=== PATIENT | male | born 1955 | race Caucasian/White ===

== ENCOUNTER 2017-09-10 11:21 | Inpatient (IN) | payer BC ==
[2017-09-10] VITALS (15 sets, daily range): BP systolic 80–127; BP diastolic 55–89
[~2017-09-10] VITALS: Ht 170.2 cm; Wt 114.3 kg
--- NOTE | ~2017-09-10 | H ---
[address] [address] HISTORY AND PHYSICAL Name: JOSH DALY Room: [address] IN ..#: [id number] Admission: 09/10/17 Attend Phys: Flaco Arora MD Discharge: 09/12/17 Date of : 55 Report #: [id number] THIS REPORT FOR: //name// Please refer to the History and Physical performed in the physician's office. By: 1439Medical Records Staff EVIE /DIANA
[2017-09-10 12:14] LABS: HEMATOCRIT 49.9 % (42.0-52.0); HEMOGLOBIN 16.7 gm/dL (14.0-18.0); MCH 31.3 pg (26.0-34.0); MCHC 33.4 g/dL (28.0-37.0); MCV 93.8 fL (80.0-100.0); MPV 7.7 fl. (7.2-11.1); RBC 5.31 mil/uL (4.50-6.00); RDW-CV 15.4 % (10.5-14.5)
[2017-09-10 12:24] LABS: ANION GAP 12 mmol/L (7-16); BUN 10 mg/dL (7-18); CALCIUM 9.1 mg/dL (8.5-10.1); CHLORIDE 102 mmol/L (98-107); CO2 26 mmol/L (21-32); GLUCOSE 80 mg/dL (70-99); POTASSIUM 3.9 mmol/L (3.5-5.1); SODIUM 140 mmol/L (136-145)
[2017-09-10 12:25] LABS: APTT 29.1 Seconds (25.0-31.3); PROTIME 9.9 Seconds (9.20-11.50)
[2017-09-10 12:29] LABS: ALBUMIN 3.7 g/dL (3.4-5.0); ALKALINE PHOSPHATASE 87 U/L (46-116); CHOLESTEROL 224 mg/dL (<200); HDL CHOLESTEROL 52 mg/dL (>40); LDL CHOLESTEROL 134 mg/dL (<100); SERUM ASSESSMENT Clear; SGOT 20 U/L (15-37); SGPT 35 U/L (30-65); TC:HDL 4.3 Ratio (Not establshd); TOTAL BILIRUBIN 0.3 mg/dL (<0.1-1.0); TOTAL PROTEIN 7.7 g/dL (6.4-8.2); TRIGLYCERIDE 193 mg/dL (<150); VLDL 39 mg/dL (<40)
[2017-09-10] MEDS ORDERED: DEXILANT60 MG PO (12:31)
[2017-09-10] MEDS ORDERED: LOPRESSOR50 PO (12:32)
[2017-09-10] MEDS ORDERED: LISINOPRIL5 MG PO (12:32)
[2017-09-10] MEDS ORDERED: ZETIA10 MG PO (12:32)
[2017-09-10] MEDS ORDERED: LEXAPRO20 MG (12:35)
[2017-09-10] MEDS ORDERED: CRESTOR40 MG PO (12:35)
[2017-09-10] MEDS ORDERED: ASPIR 8181 MG PO (12:36)
[2017-09-10] MEDS ORDERED: FISH OIL 1,001000 M2 (12:36)
[2017-09-10] MEDS ORDERED: ABILIFY 5 MG TAB5 MG PO (12:36)
--- NOTE | 2017-09-10 14:05 | EKG ---
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
--- NOTE | 2017-09-10 19:53 | NUR ---
RECIEVED REPORT AND ASSUMED CARE OF PT AT 1900. PT POST CARDIAC CATHETERIZATION WITH STENT PLACEMENT AND TREATMENT OF DISSECTED RIGHT CORONARY ARTERY. PT HAS RIGHT RADIAL RAD STAT IN PLACE AND RIGHT FEMORAL SHEATH WITH ARTERIAL LINE PRESENT. PT IN SUPINE POSITION WITH RIGHT LEG STRAIGHT. SEATH IS TO REMAIN FOR ENTIRE SHIFT UNTIL EVALUATED BY PIN GAME MACHINE INSPECTOR IN AM. PT USING CALL LIGHT APPROPRIATELY, VITAL SIGNS WITHIN NORMAL LIMITS.
[2017-09-10 20:16] LABS: CALCIUM 8.3 mg/dL (8.5-10.1); POTASSIUM 4.4 mmol/L (3.5-5.1); TOTAL BILIRUBIN 0.4 mg/dL (<0.1-1.0); TOTAL PROTEIN 6.5 g/dL (6.4-8.2)
[2017-09-11] VITALS (22 sets, daily range): BP systolic 96–146; BP diastolic 50–87
[2017-09-11 04:15] LABS: HEMATOCRIT 42.7 % (42.0-52.0); MCH 31.1 pg (26.0-34.0); MCHC 33.1 g/dL (28.0-37.0); MPV 7.6 fl. (7.2-11.1); RBC 4.54 mil/uL (4.50-6.00); WBC 8.3 thou/uL (4.0-11.0)
[2017-09-11 04:18] LABS: HEMOGLOBIN 14.1 gm/dL (14.0-18.0)
[2017-09-11 04:35] LABS: ALBUMIN 2.9 g/dL (3.4-5.0); CALCIUM 8.2 mg/dL (8.5-10.1); CREATININE 0.9 mg/dL (0.6-1.3); POTASSIUM 4.1 mmol/L (3.5-5.1); TOTAL BILIRUBIN 0.6 mg/dL (<0.1-1.0); TOTAL PROTEIN 6.2 g/dL (6.4-8.2)
[2017-09-11 04:37] LABS: TROPONIN-I LEVEL 11.52 ng/mL (<0.06)
--- NOTE | 2017-09-11 05:18 | NUR ---
PT PROGRESSSING TOWARD GOALS. PT IN SINUS RHYTHM THROUGHOUT SHIFT. OCCASIONAL PVC'S AND PAC'S NOTED. BLOOD PRESSURE WITHIN NORMAL LIMITS. RAD STAT TO RIGHT WRIST REMOVED PER PROTOCOL. RIGHT GROIN SHEATH TO ARTERIAL LINE INTACT. GROIN SITE SOFT, NO BLEEDING OR HEMATOMA NOTED. UPPER EXTREMITY PULSES 2+, LOWER EXTREMITIES PALPABLE AT 1+. PT DENIES CHEST PAIN, PRESSURE OR SHORTNESS OF AIR DURING SHIFT. PT TOLERATING CLEAR LIQUIDS WITHOUT DIFFICULTY, NO NAUSEA OR VOMITING. PT MAINTAINED SUPINE POSITION DURING NIGHT, PRN NORCO GIVEN ONCE FOR ACHING BACK. NO ACUTE CHANGES DURING SHIFT, WILL CONTINUE TO MONITOR CLOSELY.
--- NOTE | 2017-09-11 06:42 | NUR ---
PAGED DR ENNIS REGARDING AGGRASTAT. REPORTED BAG COMPLETELY INFUSED. RECIEVED ORDER TO CONTINUE INFUSION. MED OBTAINED VIA NURSING TOWING PILOT. DRIP CONTINUED ORDERED.
--- NOTE | 2017-09-11 10:55 | NUR ---
SPOKE WITH PT. PT HAD CARDIAC CATH WITH STENTS PLACED YESTERDAY. PT SAID HE LIVES WITH HIS AND HAS BEEN FAIRLY INDEP AT HOME. HE SAID HE NEEDS TO HAVE A PARTIAL KNEE REPLACEMENT DONE SO HE HAS BEEN SOMEWHAT LIMITED IN HOW ACTIVE HE CAN BE DUE TO THE KNEE PAIN. HE HAS BEEN USING A CANE DUE TO THE KNEE PAIN. 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 PT DENIES ANY DISCHARGE NNEDS.
--- NOTE | 2017-09-11 11:27 | NUR ---
ASSUMED PT CARE 0730. RIGHT GROIN SHEETH REMOVED BY CARDIOLOGY. RIGHT GROIN NO HEMATOMA. NO BLEEDING. TEGADERM AND 4X4 GUA[address] PL[address]. NO PAIN. PT REPORTS TENDERNESS AT SITE. RIGHT RADIAL SITE CLEAN, DRY, INTACT. PALBABLE RADIAL PULSE. PT DENIES CHEST PAIN/PRESSURE. NO NAUSEA. PEDAL PULSES PALBABLE. VSS. AFEBRILE. PT TOLERATING REGULAR DIET. PO [place]INTA GIVEN. AGRASTAT TO RUN FOR 4 HOURS POST ADMININSTRATION GO PO BRI[place]TA. AMIODARONE DC'D PER CARDIOLOGY. PT REMAINS ON BED REST. EDUCATION GIVEN ON NEW MEDICATION. TRACING SR. WILL CONTINUE PLAN OF CARE.
--- NOTE | 2017-09-11 14:21 | NUR ---
AT 1345 PT REPORTED FEELING SHORT OF BREATH AND FEELING "FLUSHED". BP 120'S/70'S HR IN 90'S, RESPIRATIONS 19, O2 96% ON ROOM AIR. EPISODE LASTED ABOUT 2 MINUTES. PT REPORTS THESE WERE SAME SYMPTOMS HE EXPERIENCED PRIOR TO ADMISSION. PT REPORTS FEELING LIKE HE JUST NEEDED TO SIT UP. EKG OBTAINED AND FAXED TO CARDIOLOGY. NOTHING ACUTE NOTED ON EKG PER CARDIOLOGY. PT WAS GOING TO BE TELEMETRY STATUS WHEN AGROSTAT STOPPED. ASKED IF PT STILL OKAY TO BE TELEMETRY STATUS, CARDIOLOGY REPORTS YES.
--- NOTE | 2017-09-11 16:06 | EKG ---
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 : 1955 Requested By: Flaco Arora Order Number: [id number] Sarah MD: Michael Villa Measurements Intervals [place] Rate: 82 P: 49 DC: 168 QRS: 39 QRSD: 90 T: -15 QT: 377 QTc: 441 Interpretive Statements Sinus rhythm Borderline low voltage, extremity leads Abnormal R-wave progression, early transition Compared to ECG 09/10/2017 11:56:19 No significant changes Electronically Signed On 09-11-2017 16:06:13 CDT by Michael Villa [email or web address] <ELECTRONICALLY SIGNED> By: Michael Villa MD, FAC 09/11/17 1606 1819 1819 Michael Villa MD, [facility] /EPI
--- NOTE | 2017-09-11 16:14 | EKG ---
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: : 1955 Requested By: Michael Villa Order Number: [id number] Sarah MD: Michael Villa Measurements Intervals [place] Rate: 100 P: 45 [place]: 162 QRS: 8 QRSD: 92 T: -48 QT: 376 QTc: 485 Interpretive Statements Sinus tachycardia Inferior infarct, age indeterminate Posterior infarct, old Compared to ECG 09/10/2017 11:56:19 Myocardial infarct finding now present Electronically Signed On 09-11-2017 16:14:20 CDT by Michael Villa [email or web address] <ELECTRONICALLY SIGNED> By: Michael Villa MD, [facility] 09/11/17 1614 1118 1118 Michael Villa MD, [facility] /EPI
--- NOTE | 2017-09-11 22:30 | NUR ---
INITAL ASSESSMENT COMPLETED AT 1930. PT DENIES CHEST PAIN, PRESSURE OR SHORTNESS OF AIR. PT CHANGED TO TELEMETRY STATUS DURING DAY SHIFT. PT'S RIGHT GROIN SITE SOFT, DRY, NO BLEEDING BRUISING OR HEMATOMA. RIGHT RADIAL SITE NO BLEEDING BRUISING OR HEMATOMA. PT GIVEN PRN RESTORIL PER REQUEST. CALL LIGHT IN REACH, PT USING APPROPRIATELY.
--- NOTE | 2017-09-11 22:44 | NUR ---
REPORT GIVEN TO MARC FARMER. PT TRANSFERED VIA WHEELCHAIR TO ROOM 227 ON TELEMETRY FLOOR AT 2240.
--- NOTE | 2017-09-11 23:13 | NUR ---
PATIENT TRANSFERRED FROM ICU AT 2247. PATIENT ORIENTED TO ROOM AND CALL LIGHT. PATIENT DENIES PAIN AND DISCOMFORT. RIGHT GROIN SITE DRESSING C/D/I, NO SIGNS OF HEMATOMA OR BLEEDING. RIGHT RADIAL ACCESS SITE OPEN TO AIR, NO BLEEDING. PATIENT DENIES NEEDS AT THIS TIME. CALL LIGHT WITHIN REACH
[2017-09-12] VITALS (10 sets, daily range): BP systolic 87–140; BP diastolic 55–76
--- NOTE | 2017-09-12 05:27 | NUR ---
PATIENT REMAINS STABLE THIS SHIFT WITH NO C/O PAIN OR DISCOMFORT. PATIENT REMAINS ON ROOM AIR WITH SATS WNL. CATH SITES REMAIN FREE OF BLEEDING, NO SIGNS OF HEMATOMA. HOURLY ROUNDING OBSERVED. CALL LIGHT WITHIN REACH
--- NOTE | 2017-09-12 09:10 | NUR ---
PT CARE ASSUMED AROUND 0700. PT LYING IN BED, DENIES PAIN. ASSESSMENT COMPLETED. PT RIGHT RADIAL AND RIGHT FEMORAL CATH SITES PULSATILE, SOFT, NO BLEEDING AND NO HEMATOMA. PT ANXIOUS TO GET DISCHARGED TODAY. PT MEDS ADMINISTERED, EDUCATION PROVIDED. PT STATES HE WAS SUPPOSED TO HAVE HIS KNEE REPLACED NEXT WEEK, INFORMED PT HE WILL NEED TO DISCUSS WITH PSYCHOLOGY TEACHER REGARDING WHEN IT WILL BE SAFE FOR HIM SINCE HE WAS STARTED ON [place]. PT AGREES.
--- NOTE | 2017-09-12 17:45 | EKG ---
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 : 1955 Requested By: Flaco Arora Order Number: [id number] Reading MD: Michael Villa Measurements Intervals [place] Rate: 87 P: 48 [place]: 166 QRS: 2 QRSD: 96 T: -28 QT: 389 QTc: 468 Interpretive Statements Sinus rhythm Posterior infarct, old Nonspecific T abnormalities, inferior leads Compared to ECG 09/11/2017 11:18:00 Sinus tachycardia no longer present Myocardial infarct finding still present Electronically Signed On 09-12-2017 17:45:00 CDT by Michael Villa [email or web address] <ELECTRONICALLY SIGNED> By: Michael Villa MD, [facility] 09/12/17 1745 1331 1331 Michael Villa MD, [facility] /EPI
[2017-09-12] MEDS ORDERED: BRILINTA90 MG PO (18:57)
[2017-09-12] MEDS ORDERED: LIPITOR80 MG PO (19:00)
--- NOTE | 2017-09-12 19:15 | NUR ---
PT GIVEN DISCHARGE INSTRUCTIONS, EDUCATION MATERIALS AND RX CALLED IN
--- NOTE | 2017-09-13 09:55 | D ---
[facility] [address] [place] [address] DISCHARGE SUMMARY Name: JOSH DALY Room: [address] IN M.R.#: [id number] Admission: 09/10/17 Attend Phys: Flaco Arora MD Discharge: 09/12/17 Date of : 55 Report #: [id number] THIS REPORT FOR: //name// CC: Michael Mcintyre MD DISCHARGE DIAGNOSES: 1. Coronary artery disease. 2. Progressive/unstable angina. PROCEDURES DURING THE HOSPITALIZATION: Elective right coronary artery stenting to both the proximal and distal right coronary artery and regions of in-stent restenosis. HOSPITAL COURSE: The patient was brought into the hospital electively on 09/11/2017 for intervention. The patient had a long complicated procedure involving transient closure of the right coronary artery. Ultimately, the patient's artery was opened and several stents placed. The patient had drug-eluting stents placed. He ultimately established excellent flow. The left system was free of significant disease. The patient developed transient atrial fibrillation related to acute closure of his vessel. His peak troponin was 19. During this hospitalization, he had a lipid profile that showed total cholesterol 224, triglycerides 193, HDL 52 and LDL 134. DISCHARGE MEDICATIONS: Will be, Brilinta 90 mg p.o. b.i.d. times a minimum of 6 months, lisinopril 5 mg daily, metoprolol 50 mg daily, Lipitor 80 mg daily, aspirin 81 mg daily. DISPOSITION: The patient to follow up with nurse practitioner in our office in 2 weeks. The patient is to follow up with myself in 2 months. <ELECTRONICALLY SIGNED> By: Flaco Arora MD, FACC 09/13/17 0955 1838 1851Flaco Arora MD, FACC /nt
--- NOTE | 2017-09-15 11:11 | CARD ---
[address] [address] CARDIAC CATH REPORT Name: PRATIBHA DALYHU Troncoso Room: [address] IN [facility]#: [id number] Admission: 09/10/17 Attend Phys: Flcao Arora MD Discharge: 09/12/17 Date of : 55 Report #: [id number] THIS REPORT FOR: //name// APPROVED REPORT Study performed: 09/10/2017 12:11:36 Patient Details Patient Status: Out-Patient Room #: 001 The patient is a 62 year-old male Event Personnel Flaco Arora Plate Embosser, Alix Lugo RN RN, Fiona Castellanos Childers, James Monitor, Holkins, John Plate Embosser, Cee Thomas RN RN, Fiona Castellanos Childers, James Scrub, Evita Ferguson RN Retail Receiving Clerk Procedures Performed Art Access - R femoral artery* , Complete Heart CatheterizationArt Access - R femoral artery* , Selective Right and Left Coronary Angiography, PTCA with Stenting Indication Unstable angina Risk Factors Hypercholesterolemia, Hypertension Previous Procedures/Diagnoses Previous PCI Procedure Narrative The patient was brought electively to the Cardiac Catheterization Laboratory and was prepped and draped in a sterile manner. The right wrist was infiltrated with 2% Lidocaine subcutaneous anesthesia. A Slender Glidesheath sheath was inserted into the right radial artery. Coronary angiography was performed using coronary diagnostic catheters. The right coronary system was accessed and visualized with a Radnor 4.0 6fr catheter. The left coronary system was accessed and visualized with a Radnor 4.0 6fr catheter. The left ventricle was accessed and visualized with a Diagnostic catheter. Left ventricular/Aortic Valve gradient assessed via catheter pullback. Left ventriculogram was performed in SOLIS projection. [place] [address] CARDIAC CATH REPORT Name: MALIKAJOSH Karyna Room: [address]#: [id number] Admission: 09/10/17 Attend Phys: Flaco Arora MD Discharge: 09/12/17 Date of : 55 Report #: [id number] Intraoperative Conscious Sedation Sedation start time: 13:15 Case end Time: 17:30 Fentanyl 400 mcg Versed 12 mg Fluoro Time: 95.8 minutes Dose: DAP [id number] cGycm2 84192.79 mGy Contrast Type and Amount: Visipaque 730 ml Coronary Angiography The patient's coronary anatomy is right dominant. Diagnostic Cath Left Main 0% narrowing LAD 20% mid LAD narrowing Circumflex 30% mid circumflex narrowing Right Coronary Large dominant vessel with 60% calcified mid vessel stenosis and 80% tubular distal right coronary in-stent restenosis Left Ventriculography The left ventricle is normal in size with normal contractility. The left ventricular ejection fraction is estimated to be 65-70%. Left ventricular wall motion abnormalities are not present. There is no mitral insufficiency. Hemodynamics The aortic pressure is 124/83 mmHg with a mean of mmHg. The left ventricular pressure is 104/2 mmHg with a mean of mmHg. The left ventricular end diastolic pressure is 4 mmHg. There was no gradient across the aortic valve upon pullback. PCI Technique Lesion Anticoagulation was achieved with Angiomax. Percutaneous coronary intervention was performed on the proximal right coronary artery. The lesion stenosis prior to intervention was 100% with KOURTNEY 0 flow. A 6FR XBRCA Guide Catheter was used to engage the right ostium. A IG: ProwaterFlex 180CM Interventional Guidewire was used to cross the lesion. BALLOON DILATION A Balloon catheter Trek RX 2.75 X 12 was inserted and inflated up to 16atm for 15seconds. STENT DEPLOYMENT A bare metal stent Vision RX 3.0 X 15, 3.0x8, 2.5x12 [place] [address] CARDIAC CATH REPORT Name: JOSH DALY Room: [address]#: [id number] Admission: 09/10/17 Attend Phys: Flaco Arora MD Discharge: 09/12/17 Date of : 55 Report #: [id number] inflated up to 16atm for doingseconds. Final angiography reveals 20 % stenosis with KOURTNEY 3 flow. COMMENTS In attempting to achieve distal stent positioning, I utilized a Guideliner. There was development of proximal dissection with complete interruption of flow beyond the point of dissection to the distal right coronary artery. After placing a 6 [place] XB RCA guide for additional backup and rewiring the true lumen with an 014. Prowater, I was able to advance a sequence of stents, 3.0 x 15, 3.0 x 8, and 2.5 x 12 vision bare-metal stent sequentially from proximal to distal in the proximal right coronary artery with restorationism of KOURTNEY 3 flow to the distal vessel. PCI Technique Lesion 2 Percutaneous Coronary Intervention was performed on the distal right coronary artery. Percutaneous coronary intervention was performed on the distal right coronary artery. Balloon Dilation A Balloon catheter Trek RX 2.75 X 12 was inserted and inflated up to 12-16atm for 15seconds. Final angiography reveals 20 % stenosis with KOURTNEY 3 flow. Conclusion #1 significant coronary artery disease characterized by the following: A 20% mid LAD narrowing, B 30% mid circumflex narrowing, C dominant right coronary artery was 60% heavily calcified mid vessel stenosis and 80% distal in-stent restenosis #2 normal left ventricular systolic function, estimated ejection fraction of 65-70% #3 development of proximal right coronary dissection with advancement of a guideliner catheterization in attempt to achieve distal stent positioning; the vessel was recanalized after placing a 6 Kisw[place] XB RCA guiding catheter for additional support, [place] [address] CARDIAC CATH REPORT Name: JOSH DALY Room: [address] IN ..#: [id number] Admission: 09/10/17 Attend Phys: Flaco Arora MD Discharge: 09/12/17 Date of : 55 Report #: [id number] with an 014 prowater flex wire and placing sequential stents proximally #4 20% residual proximal right coronary narrowing after deployment of the sequential stents as outlined above in the right coronary artery #5 successful percutaneous transluminal coronary angioplasty of the distal right coronary artery with 20% residual narrowing following final dilatation and KOURTNEY-3 flow the distal vessel. #6 successful DC cardioversion with rhythm converting from atrial fibrillation to sinus after loading with IV amiodarone and 360 W seconds administered 1 Recommendations Cardiac Risk Reduction Program Aggressive Medical Therapy Medications Administered Angiomax bolus and infusion. Aggrastat bolus and infusion. IV amiodarone bolus and infusion Diagnostic Cath Approved by: Flaco Arora MD Date/Time: 09/15/17 at 1100 hrs. <ELECTRONICALLY SIGNED> By: Michael Villa MD, FACC 09/15/17 1111 1111 1111Jomalcom Villa MD, FACC /INF
== END 2017-09-12 19:26 | disposition home or self-care (01) | DRG 248 ==
LOC: M.CL 11:21 → M.TBA-ER 18:10 → M.ICU 18:10 → M.2W 09-11 23:01
PROVIDERS: Internal Medicine Cardiovascular Disease; ADMIT Internal Medicine
DX: T82.855A Stenosis of coronary artery stent, initial encounter (principal); I25.42 Coronary artery dissection; I25.110 Atherosclerotic heart disease of native coronary artery with unstable angina pectoris; Y83.8 Other surgical procedures as the cause of abnormal reaction of the patient, or of later complication, without mention of misadventure at the time of the procedure; I48.91 Unspecified atrial fibrillation; I10 Essential (primary) hypertension; E78.5 Hyperlipidemia, unspecified; Z79.82 Long term (current) use of aspirin; Z79.899 Other long term (current) drug therapy; Y92.89 Other specified places as the place of occurrence of the external cause